=== PATIENT | female | born 1955 | race Caucasian/White ===

== ENCOUNTER → 2017-07-12 09:12 | Outpatient (CLI) | payer BC ==
[2017-07-17 22:08] LABS: OVA + PARASITE EXAM Final report (())
== END | disposition home or self-care (01) ==
LOC: D.LAB 09:12
PROVIDERS: Nurse Practitioner Family
DX: R19.5 Other fecal abnormalities (principal)

== ENCOUNTER 2018-12-05 11:10 | Outpatient (CLI) | payer BC | END 2018-12-05 23:59 | disposition home or self-care (01) | LOC: D.MAMMO 11:10 | PROVIDERS: ATTEND Clinical Nurse Specialist Family Health | DX: Z12.31 Encounter for screening mammogram for malignant neoplasm of breast (principal) ==

== ENCOUNTER 2020-06-17 14:17 | Outpatient (CLI) | payer BC ==
[~2020-06-17] VITALS: Ht 170.2 cm; Wt 75.0 kg
[2020-06-17 14:37] VITALS: BP 160/98; Ht 170.2 cm; Wt 75.0 kg
--- NOTE | 2020-06-17 15:54 | NUR ---
PT VOIDED. DENIES OTHER NEEDS AT THIS TIME.
--- NOTE | 2020-06-17 16:14 | NUR ---
SPOKE TO PT'S SON, XAVIER STEINBERG. I INFORMED HIM THAT PT'S INFUSION IS FINISHED AND SHE WILL BE ABLE TO BE DC'D AT 1700. HE STATES UNDERSTANDING AND WILL BE ABLE TO PICK HER UP AT THAT TIME [facility]. WILL CONTINUE TO MONITOR PT.
--- NOTE | 2020-06-17 16:43 | NUR ---
DC INSTRUCTIONS GIVEN TO PT. STATES UNDERSTANDING. DC'D IV CATH FULLY INTACT. WILL DC TO SON AT 1700
--- NOTE | 2020-06-17 17:07 | NUR ---
PT LEFT UNIT VIA WC AT 1700
== END 2020-06-17 17:00 | disposition home or self-care (01) ==
LOC: D.OPS 14:17
PROVIDERS: ATTEND Nurse Practitioner Family
DX: Z23 Encounter for immunization (principal)

== ENCOUNTER → 2020-07-27 12:10 | Outpatient (CLI) | payer BC ==
[2020-06-17 14:37] VITALS: BMI 25.9
[2020-07-27 14:17] LABS: SARS-CoV-2 ANTIGEN NEGATIVE- SARS-COV-2 (NEGATIVE)
== END | disposition home or self-care (01) ==
LOC: D.LAB 12:10
PROVIDERS: ATTEND Internal Medicine Pulmonary Disease
DX: Z11.52 Encounter for screening for COVID-19 (principal)

== ENCOUNTER → 2020-07-29 08:19 | Outpatient (CLI) | payer BC ==
[2020-06-17 14:37] VITALS: BMI 25.9
== END | disposition home or self-care (01) ==
LOC: D.RT 08:00
PROVIDERS: ATTEND Internal Medicine Pulmonary Disease
DX: R06.09 Other forms of dyspnea (principal)